=== PATIENT | male | born 1975 | race Caucasian/White ===

== ENCOUNTER 2016-07-09 20:44 | Emergency (ER) | payer SELFPAY ==
[~2016-07-09 20:44] MED LIST: ASCORBIC ACID250 MG PO; IRON325 M1 PO; KEFLEX-DPS500 MG PO; LACTULOSE10 GM/15 M PO; PEPCID DPS20 MG PO
--- NOTE | 2016-07-19 23:29 | ER ---
ADMIT: 07/09/2016 RM/LOC: ER [facility] MR#: [id number] [address] [facility] [address] [place] [id number] [address] DE LA [address] [place] [address] Emergency Room Report SEX: M AGE: 40 : 1975 DATE: 07/09/2016 CHIEF COMPLAINT: Alcohol detox. HISTORY OF PRESENT ILLNESS: The patient is a 40-year-old male with history of significant alcohol abuse for approximately 10 years. On a typical day, he drinks between 6 and 10 drinks a day. He has fairly recently been diagnosed with liver disease. [facility] and does not currently live in [place]. He went to [facility] today to be admitted for alcohol detox, but when they did the urinalysis, he had some benzodiazepines in his system, and apparently, he was given a benzodiazepine several days ago at an outside facility. He denies any other ingestion of benzodiazepines, and there is a distinct possibility that he could still have a positive urinalysis due to the fact he has liver disease and he is not processing with benzodiazepine at a normal rate. He has no other complaints at this time. REVIEW OF SYSTEMS: Ten-point review of systems is done and otherwise negative except as in HPI. PAST MEDICAL HISTORY: Significant for alcohol abuse, cirrhosis, and cellulitis several weeks ago. MEDICATIONS: See nurse's note. ALLERGIES: NONE. DENIES ANY DRUG USE. DOES HAVE A SIGNIFICANT ALCOHOL ABUSE HISTORY. PHYSICAL EXAMINATION: See T-sheet. Pertinent positives are 2+ to 3+ bilateral lower extremity edema with mild scleral icterus. EMERGENCY DEPARTMENT COURSE: At this point, the patient does not appear like he would require admission for his alcohol withdrawal symptoms. His last drink was approximately 18 hours ago, and he states if anything, he does have some very mild symptoms of feeling like he is starting to get the shakes, but ADMIT: 07/09/2016 RM/LOC: ER [facility] MR#: [id number] [facility] [facility] [address] [place] [id number] [address] [place] [address] Emergency Room Report SEX: M AGE: 40 : 1975 his vital signs are stable and he is not in any distress whatsoever. We did discuss the case with long term care social worker for the [place] and staff member at [facility]. We notified them that at this point, we would be giving him a dose of benzodiazepine, 1 mg of Ativan. He is going to be discharged from our facility to go to a hotel tonight and then present back to [facility] tomorrow in hopes that he would be able to get admitted. It is noted that he will likely get a positive benzodiazepine on urine tox screen tomorrow also because he was given a benzodiazepine tonight, and hopefully that will be noted and that will not prevent him from being admitted for alcohol withdrawal at [facility]. The patient is discharged in stable condition with the diagnoses of: 1. Alcohol abuse. 2. Liver disease. Ronaldo Garcia MD/ maribell JOB #: [id number] CC: Ronaldo Garcia MD, Attending Physician Aida Souza MD, Family Physician
== END 2016-07-09 23:40 | disposition home or self-care (01) ==
LOC: ER 20:44
DX: F10.20 Alcohol dependence, uncomplicated (principal); K76.9 Liver disease, unspecified; D64.9 Anemia, unspecified; F17.210 Nicotine dependence, cigarettes, uncomplicated